=== PATIENT | female | born 1985 | race Caucasian/White ===

== ENCOUNTER 2022-07-16 14:35 | Outpatient (CLI) | payer BC, OTHER | END 2022-07-16 14:36 | disposition home or self-care (01) | LOC: CSHMAMMO 14:35 | PROVIDERS: ATTEND Advanced Practice Midwife | DX: Z12.31 Encounter for screening mammogram for malignant neoplasm of breast (principal); Z98.890 Other specified postprocedural states | CPT/HCPCS: 77063; 77067 ==